=== PATIENT | female | born 1955 | race Caucasian/White ===

== ENCOUNTER → 2016-12-24 | Outpatient (CLI) | payer OTHER ==
[~2016-12-24] MED LIST: ADVAIR 100-501 EACH INH; ALBUTEROL2.5 MG/0.5 IH; ALPRAZOLAM; AMBIEN; AMBIEN 10 MG TA10 MG PO; AMBIEN PO; CEPACOL SORE T1 EAC9; CLONAZEPAM 0.50.5 M1 PO; CLONAZEPAM 1 MG1 M1 PO; COREG; DEXILANT60 MG PO; DIOVAN160 MG PO; DIOVAN320 MG PO; DOMPERIDONE PO; FAMOTIDINE 20 M20 MG PO; FLOVENT HFA 1110 MCG IH; HYDROCODONE; HYDROCODONE-AP1 EACH PO; IBUPROFEN 200200 M1 PO; IBUPROFEN 400400 M1 PO; KLONOPIN0.5 MG PO; NEXIUM; NORCO 10-325 T1 EACH PO; NORCO 5-325 TA1 EACH PO; NYSTATIN1 EA10 TOP; PEPCID20 MG PO; PEPCID40 MG PO; PHENASEPTIC1 BOT; PROTONIX40 M2 PO; TAGAMET PO; TAMBOCOR 100 M100 M1 PO; TIZANIDINE HCL2 M1 PO; TIZANIDINE PO; TRAZODONE 150150 M1 PO; TRAZODONE HCL50 MG PO; TUMS PO; UNKNOWN BP MED; VENTOLIN HFA 1818 GM INH; VICODIN; ZANAFLEX2 M1 PO; ZOCOR 10 MG TAB10 MG PO; ZOLOFT PO
== END ==
LOC: CAT 11:11
DX: D86.89 Sarcoidosis of other sites (principal)